=== PATIENT | female | born 2005 | race Caucasian/White ===

== ENCOUNTER 2024-03-10 10:27 | Emergency (ER) | payer OTHER ==
[2024-03-10 10:32] VITALS: RESP 16
--- NOTE | 2024-03-10 11:36 | ED ---
General Adult HPI - General Chief complaint: OB/Uterine Contractions Stated complaint: Abd pain- 17 weeks preg Time Seen by Provider: 03/10/24 10:35 Source: patient, RN notes reviewed Mode of arrival: ambulatory Limitations: no limitations - History of Present Illness Initial comments: 18-year-old female presents emergency department chief complaint of abdominal pain in . Patient is G1, [address] Mallory Patient states that she started having pain left side. States is worse when she leans back when she stands. Denies any vaginal bleeding or vaginal discharge no dysuria no fevers or chills no other complaints. - Related Data Previous Rx's Medication Instructions Recorded Cephalexin [Keflex] 500 mg PO TID #21 cap 03/10/24 Allergies Allergy/AdvReac Type Severity Reaction Status Date / Time amoxicillin Allergy Unknown Verified 03/10/24 10:32 Review of Systems ROS Statement: Those systems with pertinent positive or pertinent negative responses have been documented in the HPI. ROS Other: All systems not noted in ROS Statement are negative. Past Medical History Past Medical History: No Reported History History of Any Multi-Drug Resistant Organisms: None Reported Past Surgical History: No Surgical Hx Reported Past Psychological History: No Psychological Hx Reported Smoking Status: Never smoker Past Alcohol Use History: None Reported Past Drug Use History: None Reported General Exam Limitations: no limitations General appearance: alert, in no apparent distress Head exam: Present: atraumatic, normocephalic, normal inspection ENT exam: Present: normal exam, mucous membranes moist Neck exam: Present: normal inspection. Absent: tenderness, meningismus, lymphadenopathy Respiratory exam: Present: normal lung sounds bilaterally. Absent: respiratory distress, wheezes, rales, rhonchi, stridor Cardiovascular Exam: Present: regular rate, normal rhythm, normal heart sounds. Absent: systolic murmur, diastolic murmur, rubs, gallop, clicks GI/Abdominal exam: Present: soft, tenderness (Very minimal left-sided tenderness), normal bowel sounds. Absent: distended, guarding, rebound, rigid Course Vital Signs 03/10/24 10:29 Temperature 97.9 F Pulse Rate 96 Respiratory 16 Rate Blood Pressure 111/65 O2 Sat by Pulse 98 Oximetry Medical Decision Making - Medical Decision Making Was pt. sent in by a medical professional or institution (, PA, CHIEF ADMINISTRATIVE OFFICER, urgent care, hospital, or jail...) When possible be specific @ -No Did you speak to anyone other than the patient for history (EMS, parent, family, police, friend...)? What history was obtained from this source @ -No Did you review nursing and triage notes (agree or disagree)? Why? @ -I reviewed and agree with nursing and triage notes Were old charts reviewed (outside hosp., previous admission, EMS record, old EKG, old radiological studies, urgent care reports/EKG's, jail records)? Report findings @ -No old charts were reviewed Differential Diagnosis (chest pain, altered mental status, abdominal pain women, abdominal pain men, vaginal bleeding, weakness, fever, dyspnea, syncope, headache, dizziness, GI bleed, back pain, seizure, CVA, palpatations, mental health, musculoskeletal)? @ -Differential Abdominal Pain Women: Appendicitis, Cholecystitis, diverticulosis, ischemic bowel, pancreatitis, hepatitis, UTI, gastroenteritis, AAA, incarcerated hernia, bowel obstruction, constipation, inflammatory bowel, hepatitis, peptic ulcer disease, splenic infa rction, perforated viscus, vulvitis, ovarian torsion, PID, kidney stone, placenta abruption, this is not meant to be an all-inclusive list EKG interpreted by me (3pts min.). @ -None X-rays interpreted by me (1pt min.). @ -None done CT interpreted by me (1pt min.). @ -None done U/S interpreted by me (1pt. min.). @ -NONE OB showing single viable IUP 17 weeks and 5 days no complicating factors What testing was considered but not performed or refused? (CT, X-rays, U/S, labs)? Why? @ -None What meds were considered but not given or refused? Why? @ -None Did you discuss the management of the patient with other professionals (professionals i.e. , PA, CHIEF ADMINISTRATIVE OFFICER, lab, RT, psych nurse, social worker psychiatric, system analyst, teacher, fire management officer, embedded case manager)? Give summary @ -No Was smoking cessation discussed for >3mins.? @ -No Was critical care preformed (if so, how long)? @ -No Were there social determinants of health that impacted care today? How? (Homelessness, low income, unemployed, alcoholism, drug addiction, transportation, low edu. Level, literacy, decrease access to med. care, custodial, rehab)? @ -No Was there de-escalation of care discussed even if they declined (Discuss DNR or withdrawal of care, Hospice)? DNR status @ -No What co-morbidities impacted this encounter? (DM, HTN, Smoking, COPD, CAD, Cancer, CVA, ARF, Chemo, Hep., AIDS, mental health diagnosis, sleep apnea, morbid obesity)? @ -None Was patient admitted / discharged? Hospital course, mention meds given and route, prescriptions, significant lab abnormalities, going to OR and other pertinent info. @ -Urged patient presented for abdominal pain in patient has evidence of UTI. Patient ultrasound was unremarkable patient will follow-up with [facility] return parameters hira. Patient started on Keflex. Undiagnosed new problem with uncertain prognosis? @ -No Drug Therapy requiring intensive monitoring for toxicity (Heparin, Nitro, Insulin, Cardizem)? @ -No Were any procedures done? @ -No Diagnosis/symptom? @ -UTI abdominal pain in Acute, or Chronic, or Acute on Chronic? @ -Acute Uncomplicated (without systemic symptoms) or Complicated (systemic symptoms)? @ -Uncomplicated Side effects of treatment? @ -No Exacerbation, Progression, or Severe Exacerbation? @ -No Poses a threat to life or bodily function? How? (Chest pain, [place], [place], pneumonia, PE, COPD, DKA, ARF, appy, cholecystitis, CVA, Diverticulitis, Homicidal, Suicidal, threat to staff... and all critical care pts) @ -No - Lab Data Lab Results 03/10/24 Range/Units 11:37 Urine Color Colorless Urine Appearance Cloudy H (Clear) Urine pH 6.0 (5.0-8.0) Ur Specific [place] 1.025 (1.001-1.035) Urine Protein Negative (Negative) Urine Glucose (UA) Negative (Negative) Urine Ketones Negative (Negative) Urine Blood Negative (Negative) Urine Nitrite Positive H (Negative) Urine Bilirubin Negative (Negative) Urine Urobilinogen <2.0 (<2.0) mg/dL Ur Leukocyte Esterase Large H (Negative) Urine RBC 3 (0-5) /hpf Urine WBC 80 H (0-5) /hpf Urine WBC Clumps Few H (None) /hpf Ur Squamous Epith Cells 9 H (0-4) /hpf Urine Bacteria Occasional H (None) /hpf Urine Mucus Few H (None) /hpf Disposition Clinical Impression: UTI (urinary tract infection), Abdominal pain during Disposition: HOME SELF-CARE Instructions (If sedation given, give patient instructions): Abdominal Pain in (ED) Additional Instructions: Please return to the Emergency Department if symptoms worsen or any other concerns. Prescriptions: Cephalexin [Keflex] 500 mg PO TID #21 cap Is patient prescribed a controlled substance at d/c from ED?: No Referrals: None,Stated [Primary Care Provider] - 1-2 days Time of Disposition: 12:03
--- NOTE | 2024-03-10 11:43 | US ---
EXAMINATION TYPE: US OB >= 14 wk fetus DATE OF EXAM: 03/10/2024 COMPARISON: None CLINICAL INDICATION: Female, 18 years old with history of pain; Left pelvic pain TECHNIQUE: Transabdominal (TA) GESTATIONAL AGE / DATING Physician Established: (17 weeks/4 days) EDC: 08/14/2024 Dates by LMP: LMP unknown Dates by First Scan: No previous this is first scan Dates by Current Scan: (17 weeks/5 days) EDC: 08/13/2024 SURVEY IUP: Single PLACENTA: Anterior PREVIA: No Previa RAFFAELE: 10.6 cm Normal CERVICAL LENGTH (transabdominal: norm > 3.0cm): 3.6 cm BIOMETRY PRESENTATION: Vertex LIE: Longitudinal BPD: 4.0 cm 18 weeks / 2 days HC: 14.4 cm 17 weeks / 5 days AC: 12.2 cm 17 weeks / 6 days FL: 2.4 cm 17 weeks / 1 days ESTIMATED WEIGHT IN GRAMS: 200.5 grams ESTIMATED WEIGHT IN LBS/OZ: 0 lbs. 7 oz. WEIGHT PERCENTAGE BASED ON ESTABLISHED DATES: 44% HC/AC: 1.18 Normal FL/AC: 19.52 HEART RATE: 143 bpm RHYTHM: Normal IMPRESSION: Single live intrauterine gestation ultrasound age 17 weeks 5 days.
[2024-03-10 11:57] LABS: Appearance,Urine Cloudy (Clear); Bacteria,Urine Occasional /hpf; Bilirubin,Urine Negative (Negative); Blood,Urine Negative (Negative); Color,Urine Colorless; Glucose,Urine (UA) Negative (Negative); Ketones,Urine Negative (Negative); Leukocyte Esterase,Urine Large (Negative); Mucus,Urine Few /hpf; Nitrite,Urine Positive (Negative); Protein,Urine Negative (Negative); RBC,Urine 3 /hpf (0-5); Specific Gravity,Urine 1.025 (1.001-1.035); Squamous Epithelial Cell,Urine 9 /hpf (0-4); Urobilinogen,Urine <2.0 mg/dL (<2.0); WBC,Urine 80 /hpf (0-5)
[2024-03-10 12:23] VITALS: BP 110/77; PULSE 90; TEMP 98.1
== END 2024-03-10 12:23 | disposition home or self-care (01) ==
LOC: EC 10:27
DX: O23.42 Unspecified infection of urinary tract in pregnancy, second trimester (principal); N39.0 Urinary tract infection, site not specified; B95.62 Methicillin resistant Staphylococcus aureus infection as the cause of diseases classified elsewhere; Z3A.17 17 weeks gestation of pregnancy; Z88.0 Allergy status to penicillin
CPT/HCPCS: 76805; 81001; 87086; 99284

== ENCOUNTER 2024-08-18 19:39 | Inpatient (IN) | payer OTHER ==
[2024-08-18] MEDS ORDERED: miSOPROStoL 200 MCG TAB PO PRN (20:35)
[2024-08-18] MEDS ORDERED: TERBUTALINE 1 MG/ML VIAL SQ PRN (20:35)
[2024-08-18] MEDS ORDERED: TRANEXAMIC 1,000 MG/100ML-NACL 1,000 MG in EMPTY BAG 1 BAG IV PRN (20:35)
[2024-08-18] MEDS ORDERED: miSOPROStoL 200 MCG TAB RECTAL PRN (20:35)
[2024-08-18] MEDS ORDERED: METHYLERGONOVINE 0.2 MG/ML 1 ML AMP IM PRN (20:35)
[2024-08-18] MEDS ORDERED: OXYTOCIN 10 UNIT/ML 1 ML VIAL IM PRN (20:35)
[2024-08-18] MEDS ORDERED: CARBOPROST TROMETHAMINE 250 MCG/ML 1 ML AMP IM PRN (20:35)
[2024-08-18] MEDS ORDERED: LIDOCAINE 0.5% (PF) 5 MG/ML (50 ML SDV) SQ PRN (20:35)
[2024-08-18 20:52] LABS: Basophils % (A) 0 %; Eosinophils # (A) 0.1 k/uL (0-0.7); Eosinophils % (A) 1 %; HCT 35.9 % (34.0-46.0); HGB 11.6 gm/dL (11.4-16.0); Lymphocytes # (A) 3.4 k/uL (1.0-4.8); Lymphocytes % (A) 28 %; MCH 28.9 pg (25.0-35.0); MCHC 32.3 g/dL (31.0-37.0); MCV 89.4 fL (80.0-100.0); Mean Platelet Volume 8.5; Monocytes # (A) 0.7 k/uL (0-1.0); Monocytes % (A) 6 %; Neutrophils # (A) 7.6 k/uL (1.3-7.7); Neutrophils % (A) 63 %; Platelet Count 278 k/uL (150-450); RBC 4.01 m/uL (3.80-5.40); RDW 13.3 % (11.5-15.5); WBC 12.1 k/uL (4.0-11.0)
[2024-08-18] MEDS: LACTATED RINGERS 1,000 ML IV SCH (21:00)
[2024-08-19] MEDS ORDERED: NALBUPHINE 10 MG/ML (10 ML MDV) IV PRN ×2 (00:06→12:43)
[2024-08-19] MEDS: NALBUPHINE 10 MG/ML (10 ML MDV) IV PRN (00:19)
[2024-08-19] MEDS ORDERED: ROPIVACAINE 5 MG/ML 30 ML VIAL ONE (05:12)
[2024-08-19] MEDS ORDERED: fentaNYL (PF) 50 MCG/ML 5 ML AMP ONE (05:12)
[2024-08-19] MEDS ORDERED: SODIUM CHLORIDE 0.9% 250 ML BAG ONE (05:12)
--- NOTE | 2024-08-19 05:50 | P.HPOB ---
History of Present Illness H&P Date: 08/18/24 Chief Complaint: SROM 19 year old presents at 40 weeks 5 days with spontaneous rupture of membranes happening possibly this morning. heart tones category 1. HEr cer vix is 4/80/2. She is jens irregularly. Review of Systems All systems: negative Constitutional: Denies chills, Denies fever Eyes: denies blurred vision, denies pain Ears, nose, mouth and throat: Denies headache, Denies sore throat Cardiovascular: Denies chest pain, Denies shortness of breath Respiratory: Denies cough Gastrointestinal: Denies abdominal pain, Denies diarrhea, Denies nausea, Denies vomiting Genitourinary: Denies dysuria, Denies hematuria Musculoskeletal: Denies myalgias Integumentary: Denies pruritus, Denies rash Neurological: Denies numbness, Denies weakness Psychiatric: Denies anxiety, Denies depression Endocrine: Denies fatigue, Denies weight change Past Medical History Past Medical History: No Reported History History of Any Multi-Drug Resistant Organisms: None Reported Past Surgical History: No Surgical Hx Reported Smoking Status: Never smoker Medications and Allergies Home Medications Medication Instructions Recorded Confirmed Type Vit No.179/Iron/Folic 08/18/24 History [ Tablet] Allergies Allergy/AdvReac Type Severity Reaction Status Date / Time amoxicillin Allergy Unknown Verified 08/18/24 20:34 Exam Osteopathic Statement: *. No significant issues noted on an osteopathic structural exam other than those noted in the History and Physical/Consult. Intake and Output 08/18/24 08/18/24 08/19/24 14:59 22:59 06:59 Other: # Voids 1 Weight 71.668 kg Heart: Regular rate and rhythm Lungs: Clear to auscultation bilaterally Abdomen: Soft, nontender Extremities: Negative Homans sign Results Result Diagrams: 08/18/24 20:40 Abnormal Lab Results - Last 24 Hours (Table) 08/18/24 Range/Units 20:40 WBC 12.1 H (4.0-11.0) k/uL Assessment and Plan (1) SROM (spontaneous rupture of membranes) Current Visit: Yes Status: Acute Code(s): KQR3211 - SNOMED Code(s): 817406148 (2) 40 weeks gestation of Current Visit: Yes Status: Acute Code(s): Z3A.40 - 40 WEEKS GESTATION OF SNOMED Code(s): 44303630 Plan: 1. admit to [facility] 2. since she has been possibly ruptured for so long, will start antibiotics 3. anticipate normal vaginal delivery
[2024-08-19] MEDS: OXYTOCIN 30 UNITS/500 ML NS 30 UNIT in SALINE 1 500ML.BAG IV SCH (08:07)
[2024-08-19] MEDS: CITRIC ACID-SODIUM CITRATE 15 ML CUP PO ONE (12:05)
[2024-08-19] MEDS ORDERED: ONDANSETRON 4 MG/2 ML VIAL ONE (12:15)
[2024-08-19] MEDS ORDERED: fentaNYL (PF) 50 MCG/ML 2 ML AMP ONE (12:15)
[2024-08-19] MEDS ORDERED: DEXAMETHASONE SOD PHOSPHATE 4 MG/ML 1 ML VIAL ONE (12:15)
[2024-08-19] MEDS ORDERED: SUCCINYLCHOLINE CHLORIDE 200 MG/10 ML VIAL IV ONE (12:15)
[2024-08-19] MEDS ORDERED: KETOROLAC 15 MG/ML 1 ML VIAL ONE (12:15)
[2024-08-19] MEDS ORDERED: PROPOFOL 10 MG/ML 20 ML VIAL IV ONE (12:15)
[2024-08-19] MEDS ORDERED: LIDOCAINE 1% INJ 10MG/ML (20 ML MDV) ONE (12:15)
[2024-08-19] MEDS ORDERED: NALBUPHINE (ANES) 10 MG/ML - 1 ML AMP ONE (12:15)
[2024-08-19] MEDS ORDERED: diphenhydrAMINE 50 MG/ML 1 ML VIAL IVP PRN ×2 (12:43→13:10)
[2024-08-19] MEDS ORDERED: NALOXONE 0.4 MG/ML 1 ML VIAL IV PRN (12:43)
[2024-08-19] MEDS ORDERED: KETOROLAC 15 MG/ML 1 ML VIAL IVP PRN (12:43)
[2024-08-19] MEDS ORDERED: ONDANSETRON 4 MG/2 ML VIAL IVP PRN (12:43)
[2024-08-19] MEDS ORDERED: LANOLIN CREAM 1 GM TUBE TOPICAL PRN (13:10)
[2024-08-19] MEDS ORDERED: diphenhydrAMINE 25 MG CAP PO PRN (13:10)
[2024-08-19] MEDS ORDERED: SIMETHICONE 80 MG CHEWABLE PO PRN (13:10)
[2024-08-19] MEDS ORDERED: METOCLOPRAMIDE 5 MG/ML 2 ML VIAL IVP PRN (13:10)
[2024-08-19] MEDS ORDERED: diphenhydrAMINE 50 MG CAP PO PRN (13:10)
[2024-08-19] MEDS ORDERED: ZOLPIDEM 5 MG TAB PO PRN (13:10)
[2024-08-19] MEDS ORDERED: OXYTOCIN 30 UNITS/500 ML NS 30 UNIT in SALINE 1 500ML.BAG IV SCH (13:15)
--- NOTE | 2024-08-19 13:20 | P.OP ---
Date of Procedure: 08/19/24 Preoperative Diagnosis: 1. 40-5/7 weeks intrauterine , labor #2. Maternal request for elective primary low-transverse section Postoperative Diagnosis: Same Procedure(s) Performed: The patient elective primary low-transverse section Anesthesia: GETA, epidural (Failed) Surgeon: Terrance Nassar Scaler Packer #1: Sommer D[place] Estimated Blood Loss (ml): 645 IV fluids (ml): 700 Urine output (ml): 100 Pathology: none sent Condition: stable Disposition: floor Operative Findings: , The patient had a very slow progress through the latter part of the active phase of labor taking several hours to reach complete from 8 cm. Once she reached complete, she began pushing and pushed for slightly more than 2 hours with no significant descent of the head. She became exhausted and requested primary low-transverse section. She was taken to the operating room where she was delivered of a viable 7 pound 10 ounce baby boy with Apgars of 9 at 1 minute and 9 at 5 minutes delivered in the left occiput transverse position. The placenta was delivered manually, intact, grossly normal with a grossly normal three-vessel cord. The uterus, tubes, and ovaries were entirely normal to inspection. Clear urine was seen throughout the case, before, during and after. Description of Procedure: Was prepped and draped in usual fashion after epidural anesthesia was bolused by the anesthesiologist. Attempts to proceed demonstrated the patient had continued significant sensation and the decision was made to proceed with general endotracheal anesthesia. After general endotracheal anesthesia had been established, Pfannenstiel incision was made and extended into the abdominal cavity that difficulty. The bladder peritoneum was significantly distal to the intended site of incision and was left intact. A 2 cm incision was made in the transverse plane of the uterus down to the uterus at which time clear fluid was noted. The incision was extended in both directions using the bandage scissors. The head was encountered deep within the pelvis and which was delivered up and through the incision and the remainder of the delivered onto the field where the nose and mouth were thoroughly suction. The cord was doubly clamped, cut, and the infant passed resuscitative measures with weight and Apgars as noted above. cord blood was collected per protocol. The placenta was delivered manually and intact as noted above. The uterus was exteriorized and the anterior cavity the uterus swept of any remaining placental or membranous fragments. The margins of the uterine incision were grasped with Gallegos clamps and the incision closed in 2 layers. The first layer was a running locking stitch of 0 chromic catgut followed by a running imbricating stitch of 0 chromic catgut, each from margin to margin. There was a small point of bleeding in the left central portion of the incision was was made hemostatic with a [id number] stitch of 0 chromic catgut. The posterior cul-de-sac was suctioned with a guard and the uterine and ovarian findings were normal as noted above. The uterus was replaced within the abdominal cavity and the gutters were swept about remaining blood, fluid, or clot. Any small points of bleeding were made hemostatic with the Bovie. After ensuring adequate hemostasis, the parietal peritoneum was loosely reapproximated and the layer of muscles examined and found to be hemostatic. The fascia was closed with a single running stitch of 0 Vicryl proceeding from lateral margin to lateral margin. The subcutaneous tissues were irrigated, made hemostatic with the Bovie, and reapproximated with a running stitch of 3-0 plain catgut. The skin was reapproximated with a running subcuticular stitch of 4-0 Vicryl followed by half-inch Steri-Strips placed with Mastisol. Quantitative blood loss for the case was 645 mL. There were no complications. All sponge, instrument, and needle counts were correct. Both mother and are resting comfortably in recovery.
[2024-08-19] MEDS: HYDROmorphone 0.5 MG/0.5 ML SYRINGE IVP PRN (13:43)
[2024-08-19] MEDS: ACETAMINOPHEN TAB 500 MG TAB PO SCH (16:11)
[2024-08-19] MEDS ORDERED: diphenhydrAMINE ELIXIR 25 MG/10 ML CUP PO PRN ×2 (16:19)
[2024-08-19] MEDS: ACETAMINOPHEN ORAL SUSP (PEDS) 3,840 MG/120 ML BOTTLE PO SCH (16:36)
[2024-08-19] MEDS: LACTATED RINGERS 1,000 ML IV SCH (17:48)
[2024-08-19] MEDS: DOCUSATE ORAL SOLN 100 MG/10 ML CUP PO SCH (20:00)
[2024-08-19] MEDS ORDERED: SENNOSIDES-DOCUSATE SODIUM 1 EACH TAB PO SCH (20:00)
[2024-08-19] MEDS ORDERED: KETOROLAC 15 MG/ML 1 ML VIAL IVP SCH (21:00)
[2024-08-19] MEDS: KETOROLAC 15 MG/ML 1 ML VIAL IVP SCH (21:50)
[2024-08-20] MEDS: SENNA LEAF EXTRACT SYRUP 528 MG/15 ML CUP PO SCH (05:40)
--- NOTE | 2024-08-20 06:41 | P.PNOBGPC ---
Subjective - Subjective Patient reports: Reports appetite normal, Reports voiding normally, Reports pain well controlled, Reports ambulating normally : doing well Objective - Vital Signs Latest vital signs: Vital Signs Temp Pulse Resp BP Pulse Ox 08/20/24 00:00 98.2 F 92 16 122/77 100 08/19/24 20:00 98.2 F 113 H 15 106/62 08/19/24 18:00 16 98 08/19/24 15:07 97.4 F L 103 H 16 112/58 97 08/19/24 14:52 106 H 16 116/58 97 08/19/24 14:37 16 128/68 98 08/19/24 14:22 113 H 16 98/65 98 08/19/24 14:07 106 H 16 128/65 96 08/19/24 13:52 107 H 16 127/60 95 08/19/24 13:37 111 H 16 110/56 95 08/19/24 13:22 125 H 16 112/56 98 08/19/24 13:07 96.8 F L 112 H 16 117/55 96 Intake and Output 08/19/24 08/19/24 08/20/24 14:59 22:59 06:59 Intake Total 700 480 Output Total 740 350 500 Balance -40 130 -500 Intake: IV 700 Oral 480 Output: Urine 100 200 500 Output, Quantitative 640 150 Blood Loss Other: # Voids 1 - Exam Extremities: Present: normal Abdomen: Present: normal appearance, soft. Absent: distention, tenderness Incision: Present: normal, dry, intact Uterus: Present: normal, firm (The uterine fundus is tonic and appropriately tender around the umbilicus.) Assessment and Plan (1) S/P section Current Visit: Yes Status: Acute Code(s): Z98.891 - HISTORY OF UTERINE SCAR FROM PREVIOUS SURGERY SNOMED Code(s): 776900773 Plan: Continue routine and postoperative care. I have encouraged the patient to ambulate in the hallways routinely. I would anticipate discharge home tomorrow pending no complications.
[2024-08-20 07:40] LABS: Basophils % (A) 0 %; Eosinophils % (A) 0 %; HCT 23.5 % (34.0-46.0); Lymphocytes # (A) 1.8 k/uL (1.0-4.8); Lymphocytes % (A) 14 %; MCH 30.4 pg (25.0-35.0); MCHC 34.2 g/dL (31.0-37.0); Mean Platelet Volume 9.7; Monocytes # (A) 0.8 k/uL (0-1.0); Monocytes % (A) 6 %; Neutrophils # (A) 10.2 k/uL (1.3-7.7); Neutrophils % (A) 79 %; Platelet Count 210 k/uL (150-450); RBC 2.64 m/uL (3.80-5.40); WBC 12.9 k/uL (4.0-11.0)
[2024-08-20] MEDS: SENNOSIDES-DOCUSATE SODIUM 1 EACH TAB PO SCH (08:53)
[2024-08-20] MEDS: ACETAMINOPHEN TAB 500 MG TAB PO SCH (08:54)
[2024-08-20] MEDS ORDERED: IBUPROFEN 800 MG TAB PO SCH (21:00)
[2024-08-20] MEDS: IBUPROFEN ORAL SUSP 2,400 MG/120 ML BOTTLE PO SCH (21:43)
[2024-08-21 08:48] VITALS: BP 103/67; PULSE 62; RESP 16; TEMP 97.5
--- NOTE | 2024-08-21 11:18 | P.DS ---
Providers Date of admission: 08/18/24 20:17 Expected date of discharge: 08/21/24 Attending physician: Terrance Nassar Primary care physician: Stated None - Discharge Diagnosis(es) (1) S/P section Current Visit: Yes Status: Acute Hospital Course: Patient is a 19-year-old 1 para 0 admitted at 40-5/7 weeks by good dating parameters. She is admitted in early labor with possible spontaneous rupture of membranes. Her was uncomplicated and group B strep status is negative. On labor and delivery, all signs were reassuring with a category 1 heart rate tracing. She did for antibiotics started for possible prolonged rupture of membranes. She made progress through the night and had an epidural catheter placed for analgesia. She ultimately progressed to complete and then pushed over the course of approximately 2 hours and 15 minutes with no significant descent of the head. At that time, the patient proclaimed exh austion and requested primary low-transverse section. She was taken to the operating room where she was delivered of a viable 7 pound 10 ounce baby boy with Apgars of 9 at 1 minute and 9 at 5 minutes. Her and postoperative course was unremarkable with vital signs remaining stable and her temperature was afebrile throughout. She was deemed stable for discharge on and postoperative day #2 and was discharged home to follow-up in the office in 2 weeks for an incision check in 6 weeks routinely. Discharge instructions included calling for any significantly increased bleeding or foul- smelling lochia, significantly increased fever abdominal pain, perineal complaints, breast complaints, incisional complaints, or anything else that concerned her. She was additionally instructed to have nothing in the vagina for at least 6 weeks time to include intercourse. She was instructed to do no heavy lifting over the same period of time. She was lastly instructed to do no driving until off of all pain medications or 2 weeks time, whichever came first. She understood her instructions and agrees to follow-up as noted above. Discharge medications included continued vitamins as she has opted to breast-feed. She was otherwise to use [id number] analgesic pain medications and declined narcotic medication. Maternal blood type is O- and cord blood was sent for evaluation for the need for RhoGAM prior to discharge. Rubella status is immune. Discharge hemoglobin and hematocrit were 8.0 and 23.5. As a result, the patient was instructed to use iron sulfate 325 mg daily for the next month to rebuild her hemoglobin. Procedures: 1. Antibiotic prophylaxis #2. Pitocin augmentation #3. Epidural analgesia #4. Primary low-transverse section Patient Condition at Discharge: Stable Plan - Discharge Summary New Discharge Prescriptions: No Action Vit No.179/Iron/Folic [ Tablet] Discharge Medication List Vit No.179/Iron/Folic [ Tablet] 08/18/24 [History] Follow up Appointment(s)/Referral(s): Terrance Nassar MD [STAFF PHYSICIAN] - 09/29/24 11:15 am Discharge Disposition: HOME SELF-CARE
== END 2024-08-21 14:35 | disposition home or self-care (01) | DRG 788 ==
LOC: FBPOP 19:39 → 4FBP 20:17
PROVIDERS: ADMIT Obstetrics & Gynecology; ATTEND Obstetrics & Gynecology
PROC: 10D00Z1 Extraction of Products of Conception, Low, Open Approach (ICD-10-PCS; principal; 2024-08-19 06:15)
DX: O48.0 Post-term pregnancy (principal); O32.8XX0 Maternal care for other malpresentation of fetus, not applicable or unspecified; O42.92 Full-term premature rupture of membranes, unspecified as to length of time between rupture and onset of labor; Z37.0 Single live birth; Z3A.40 40 weeks gestation of pregnancy
CPT/HCPCS: 59025; 84112; 85025; 86850; 86900; 86901; 99213